=== PATIENT | female | born 1940 | race Two or more races ===

== ENCOUNTER → 2017-11-11 | Day surgery (SDC) | payer MEDICARE ==
[~2017-11-11] VITALS: Ht 160 cm; Wt 79.1 kg
[~2017-11-11] MED LIST: *morphine SULFATE 4 MG/ML PERIprocedure ONLY ONE; ACETAMINOPHEN 1000 MG/100 ML 100 ML IV SCH; ALBU0.08 NEB; ALBU2.5I; ALEN35TA24 PO; ANUC25SU RE; ANUC25SU RECTAL; BUPIVACAINE/EPINEPHRINE 0.25% 50 ML VIAL ONE; CHLORHEXIDINE GLUCONATE 2 % 1 PACK (2 CLOTHS) TOPICAL PRN; CRES20TA PO; DEXAMETHASONE SOD PHOS 4 MG/ML VIAL IV ONE; DO NOT ADM ANY ANTICOAGULANT DRUGS PRN; FISHCAP4 PO; FOLI800T PO; GABA100C4 PO; GLYCOPYRROLATE 1 MG/5 ML SYRINGE IV PUSH ONE; HYDR200T3 PO; LACTATED RINGER'S 1000 ML INJ 1,000 ML IV ONE; LACTATED RINGER'S 1000 ML IV PRN; LEVEMIR SQ; LIDO5%T TOPICAL; LIDOCAINE HCL 1% PF 5 ML SYRINGE OTHER ONE; LOSA25TA PO; METF500T PO; METH2.5T PO; METO25TA3 PO; METOPROLOL TARTRATE 25 MG TAB PO PRN; MIDAZOLAM HCL 2 MG/2 ML VIAL ONE; MORPHINE SULFATE 4 MG/ML INJ IV PUSH PRN; MULTTAB67 PO; NEOSTIGMINE 5 MG/5 ML SYRINGE IV PUSH ONE; NIFE1TAB PO; NIFE30TA61 PO; NOVOLOGP2 SQ; NOVOLOGSS; OMEP20TA93 PO; ONDANSETRON HCL 4 MG/2 ML VIAL IV ONE; ONDANSETRON HCL 4 MG/2 ML VIAL IV PUSH SCH; OXYB5TAB PO; OXYB5TAB8 PO; POVIDONE IODINE 5% (ANTISEPSIS KIT) 4 APPLICATIONS EACH NARE PRN; PROPOFOL 200 MG/20 ML AMP IV ONE; ROCURONIUM INJ 50 MG/5 ML SYRINGE IV PUSH ONE; SODIUM CHLORID 0.9% 500 ML IV PRN; SODIUM CHLORIDE 0.9% FLUSH 10 ML FLUSH IV FLUSH PRN; SODIUM CHLORIDE 0.9% FLUSH 10 ML FLUSH IV FLUSH SCH; TRAM50TA PO; VENTAER INH; VITA1000 PO; VOLT1GEL16 TOPICAL; ceFAZolin 2 GM PREMIX 50 ML IV SCH; ePHEDrine/NS 25 MG/5 ML SYRINGE IV ONE; oxyCODONE/ACETAMINOPHEN 5 MG/325 MG TAB PO PRN
--- NOTE | 2017-11-11 15:21 | MP ---
cc: Alex Dhaliwal MD DATE OF OPERATION: 11/11/2017 PREOPERATIVE DIAGNOSIS: Abdominal hernia. POSTOPERATIVE DIAGNOSIS: 1. Intraabdominal adhesions, no evidence of hernia, lipoma left upper quadrant. 2. Right-sided tumor abdominal wall 6 x 8 cm. PROCEDURE: Diagnostic laparoscopy with lysis of adhesions, excision of fatty tumor abdominal wall. SURGEON: Alex Dhaliwal MD ANESTHESIA: General endotracheal anesthesia. ESTIMATED BLOOD LOSS: Scant. FINDINGS: Patient has adhesions of her omentum to abdominal wall in the right upper quadrant, as well as adhesions of omentum to the jejunojejunostomy, which cause kinking just proximal to the jejunojejunostomy. SPECIMEN: Fatty tumor abdominal wall 6 x 10 cm. COMPLICATIONS: None. OPERATION: The patient was brought to the operating room, placed on operating room table in supine position. Bilateral sequential inflation devices placed on lower extremities. General anesthesia instituted. A Poole catheter placed. Antibiotics initiated. The abdomen was prepped and draped sterilely. A point in the left lower quadrant anesthetized with 0.25% Marcaine with epinephrine and skin incision was made. A 5 mm Optiview port placed under direct vision and pneumoperitoneum created. Under direct vision, a 5 mm right upper quadrant, 5 mm right lower quadrant and 5 mm left upper quadrant port was placed. Prior to placement of all ports, the skin and perineum anesthetized with 0.25% Marcaine with epinephrine. The abdominal cavity with findings as above. The adhesions were focused on. They were sharply . Bleeding of the omentum was controlled with 2-0 Endoloop. Once the adhesions were freed, the intraabdominal cavity was inspected, Nino limb inspected, no evidence of violation, no evidence of was of normal caliber without adhesions. At this point, intraabdominal portion of the operation was concluded, CO2 released, all ports removed. Mass identified in the left upper quadrant, anesthetized with 0.25% Marcaine with epinephrine. Skin incision was made. Fatty tissue was isolated. It was circumferentially dissected and it was removed, sent off the field as a specimen. Subcutaneous tissue was approximated with 3-0 Vicryl and skin edges approximated with 4-0 Monocryl. Abdominal wall was cleaned and a sterile dressing placed. The patient was awakened and taken to recovery room. MD EMILY Basilio , 02:16 PM , 02:49 PM
[2017-11-11 16:05] VITALS: BP 147/68; PULSE 60; RESP 18; TEMP 97.1; O2SAT 99
== END | disposition home or self-care (01) ==
LOC: HSDC 07:40
PROVIDERS: ATTEND Surgery
DX: D17.5 Benign lipomatous neoplasm of intra-abdominal organs (principal); K66.0 Peritoneal adhesions (postprocedural) (postinfection); J44.9 Chronic obstructive pulmonary disease, unspecified; E11.9 Type 2 diabetes mellitus without complications; Z79.4 Long term (current) use of insulin
CPT/HCPCS: 00790; 22903; 49320; 88304; J0690; J1100; J2250; J2270; J2405; J2710; J3010; J7120